=== PATIENT | female | born 1985 | race African-American/Black ===

== ENCOUNTER 2016-11-03 10:54 | Emergency (ER) | payer MEDICAID, OTHER ==
[~2016-11-03] VITALS: Ht 180.3 cm; Wt 100.0 kg
[~2016-11-03 10:54] MED LIST: BENZ1CAP34 PO; ZITH250T PO
[2016-11-03 10:56] VITALS: BP 151/100; PULSE 81; RESP 15; O2SAT 98
--- NOTE | 2016-11-03 11:05 | PD ---
HPI . right shoulder/arm pain for Chief Complaint: Musculoskeletal Complaint Time Seen by Provider: 11:05 Travel History International Travel<30 days: No Contact w/Intl Traveler<30days: No Traveled to known affect area: No History of Present Illness HPI 31-year-old female here with complaints of right clavicle and shoulder pain for the past few days. She does not recall any exact mechanism of injury, but is pointing to her AC joint as the location of most of her pain. She has difficulty moving her arm without pain. She rates the pain as 8/10. She has not tried any ibuprofen or Tylenol. She has no other complaints. [facility] Past Medical History Anemia: Yes ?: Not LMP: 10/26/2016 : 1 Para: 0 Miscarriage: 0 : 0 Past Surgical History Joint Replacement: Yes (RIGHT KNEE SURGERY DUE TO TORN LIGAMENTS) Social History Alcohol Use: No Tobacco Use: No Substance Use: No Allergies-Medications (Allergen,Severity, Reaction): Coded Allergies: No Known Allergies (Verified , 11/03/16) Reported Meds & Prescriptions Reported Meds & Active Scripts Active Ibuprofen 800 Mg Tab 800 Mg PO TID Flexeril (Cyclobenzaprine HCl) 5 Mg Tab 5 Mg PO TID Review of Systems General / Constitutional: No: Fever Eyes: No: Visual changes HENT: No: Headaches Cardiovascular: No: Chest Pain or Discomfort Respiratory: No: Shortness of Breath Gastrointestinal: No: Abdominal Pain Genitourinary: No: Dysuria Musculoskeletal: Positive: Pain (right shoulder/arm) Skin: No Rash Neurologic: No: Weakness Psychiatric: No: Depression Endocrine: No: Polydipsia Hematologic/Lymphatic: No: Easy Bruising Physical Exam Narrative GENERAL: AAO x 3, no acute distress, Well-nourished, well-developed patient. SKIN: Warm and dry. No visible rashes or bruising. HEAD: Normocephalic and atraumatic. EYES: No scleral icterus. No injection or drainage. ENT: No nasal drainage noted. . Airway patent. NECK: Supple, trachea midline. No JVD. CARDIOVASCULAR: Regular rate and rhythm without murmurs, gallops, or rubs. RESPIRATORY: Breath sounds equal bilaterally. No accessory muscle use. No rhonchi or rales. GASTROINTESTINAL: Visual inspection is normal EXTREMITIES: No cyanosis or edema. Bilateral upper extremities move without any difficulty. Patient is able to touch across each shoulder. She has full strength in upper and lower extremities. [employer] strength is normal bilaterally. She has tenderness along the AC joint without any obvious deformity. Right shoulder joint is freely mobile. tenderness to right shoulder muscles and partially trapezius BACK: Nontender without obvious deformity. No CVA tenderness. PSYCH: AAO x 3, normal affect. Data Data Last Documented VS Vital Signs Date Time Temp Pulse Resp B/P Pulse Ox O2 Delivery O2 Flow Rate FiO2 11/03/16 10:56 81 15 151/100 98 Orders Ibuprofen (Motrin) (11/03/16 11:15) Ac Joints,Bilat (W/Wo Weights) (11/03/16 11:13) [facility] Medical Decision Making Medical Screen Exam Complete: Yes Emergency Medical Condition: Yes Medical Record Reviewed: Yes Differential Diagnosis cervical muscle strain, pinched nerve, less likely AC joint separation, Narrative Course 31-year-old female here with complaints of right clavicle and shoulder pain for the past few days. She does not recall any exact mechanism of injury, but is pointing to her AC joint as the location of most of her pain. She has difficulty moving her arm without pain. She rates the pain as 8/10. She has not tried any ibuprofen or Tylenol. She has no other complaints. Patient seen and examined. I do not appreciate any abnormal findings on her physical exam, except for tenderness over the AC joint and trapezius (right). I will check an x-ray to rule out any type of joint separation. I highly doubt this will be positive. If it is normal send her home with some muscle relaxers for cervical muscle strain and possible pinched nerve. I have discussed my treatment plan with the patient and she is in agreement. Last Impressions Acromioclavicular Joints X-Ray 11/03/16 1113 Signed Impressions: Service Date/Time: October 11:33 - CONCLUSION: Unremarkable study. Michelle Clark MD Patient verbalized understanding of instructions, questions were answered, and thanked me for their care. I advised them if their condition worsens, please return to the nearest emergency room for further care. Diagnosis Primary Impression: Cervical muscle strain Qualified Code: S16.1XXA - Cervical muscle strain, initial encounter Additional Impression: Pinched nerve in shoulder Qualified Code: G56.81 - Pinched nerve in shoulder, right Patient Instructions: General Instructions Additional Instructions: Please return to emergency department if your symptoms return or worsen. Follow up with your primary care provider. Take medications as prescribed. If pain persists past 7-10 days, please follow-up with primary care provider. Med/Other Pt SpecificInfo: Prescription(s) given Scripts Ibuprofen 800 Mg Boc383 Mg PO TID #21 TAB Prov:Myrtle Kruse MD 11/03/16 Cyclobenzaprine (Flexeril)5 Mg Tab5 Mg PO TID #21 TAB Prov:Myrtle Kruse MD 11/03/16 Disposition: 01 DISCHARGE HOME Condition: Stable Yesy Falcno Nov 03, 2016 11:05
[2016-11-03] MEDS ORDERED: IBUPROFEN 800 MG TAB PO ONE (11:15)
--- NOTE | 2016-11-03 11:47 | RADRPT ---
EXAM DATE/TIME: 11/03/2016 11:33 [facility] COMPARISON: No previous studies available for comparison. INDICATIONS : Right radiating arm pain with no known injury. MEDICAL HISTORY : None. SURGICAL HISTORY : None. ENCOUNTER: Initial ACUITY: 1 week PAIN SCORE: 8/10 LOCATION: Right Shoulder FINDINGS: The coracoclavicular distance is normal. There is no widening of the acromioclavicular joints. No de finite fractures, dislocations, lytic, or sclerotic lesions are seen. CONCLUSION: Unremarkable study. Michelle Clark MD on November 03, 2016 at 11:44 Board Certified Radiologist. This report was verified electronically.
[2016-11-03] MEDS ORDERED: IBUP800T23 PO ×2 (11:55→12:31)
[2016-11-03] MEDS ORDERED: CYCL5TAB PO ×2 (11:55→12:31)
== END 2016-11-03 12:54 | disposition home or self-care (01) ==
LOC: NEPK 10:54
DX: S16.1XXA Strain of muscle, fascia and tendon at neck level, initial encounter (principal); G56.81 Other specified mononeuropathies of right upper limb; D64.9 Anemia, unspecified; X58.XXXA Exposure to other specified factors, initial encounter
CPT/HCPCS: 73050; 99283

== ENCOUNTER 2016-12-18 12:02 | Emergency (ER) | payer MEDICAID, OTHER ==
[~2016-12-18 12:02] MED LIST changes: -BENZ1CAP34 PO; +CYCL5TAB PO; +IBUP800T23 PO; -ZITH250T PO
[2016-12-18 12:03] VITALS: BP 134/79; PULSE 106; RESP 20; TEMP 98.5; O2SAT 100
--- NOTE | 2016-12-18 12:28 | PD ---
Physical Exam Date Seen by Provider: Dec 18, 2016 Time Seen by Provider: 12:25 Narrative 31 y/o female presents with generalized lower abdominal pain and cramping. Denies as she has had tubes tied. Fever last night. + nausea. No vomiting. No diarrhea or Constipation. Denies vaginal symptoms or dysuria. Pain 10/10. No flank pain. Patients VS stable. Awaiting Bed Placement. Data Data Last Documented VS Vital Signs Date Time Temp Pulse Resp B/P Pulse Ox O2 Delivery O2 Flow Rate FiO2 12/18/16 12:03 98.5 106 20 134/79 100 Room Air Orders Urinalysis - C+S If Indicated (12/18/16 12:28) Ed Urine Pregnancytest Poc (12/18/16 12:28) Labs Laboratory Tests Test 12/18/16 12:35 Urine Color DARK-BROWN Urine Turbidity CLOUDY Urine pH 6.0 Urine Specific [place] 1.030 Urine Protein 100 mg/dL Urine Glucose (UA) TRACE mg/dL Urine Ketones 10 mg/dL Urine Occult Blood LARGE Urine Nitrite NEG Urine Bilirubin NEG Urine Urobilinogen 2.0 MG/DL Urine Leukocyte Esterase SMALL Urine RBC 20-24 /hpf Urine WBC 3-5 /hpf Urine Squamous Epithelial 6-8 /hpf Cells Urine Yeast (Budding) RARE Microscopic Urinalysis Comment CULT NOT INDICATED MDM Medical Record Reviewed: Yes Supervised Visit with SHILOH: Yes Disposition: 07 AGAINST MEDICAL ADVICE Condition: Stable Yosvany Matais Dec 18, 2016 12:28
[2016-12-18 12:49] LABS: BLOOD, URINE LARGE (NEG); GLUCOSE,URINE TRACE mg/dL (NEG); KETONE, URINE 10 mg/dL (NEG); NITRITE,URINE NEG (NEG)
[2016-12-18 12:51] LABS: URINE COLOR DARK-BROWN (YELLW/STRAW)
[2016-12-18 13:17] LABS: COMMENT (UR) CULT NOT INDICATED; COMMENT2 (UR) CULT NOT INDICATED; CULTURE IF INDICATED CULT NOT INDICATED
== END 2016-12-18 13:35 | disposition left against medical advice (07) ==
LOC: NED 12:02
DX: R10.30 Lower abdominal pain, unspecified (principal); Z53.21 Procedure and treatment not carried out due to patient leaving prior to being seen by health care provider
CPT/HCPCS: 81001; 84703; 99281; 99283

== ENCOUNTER 2017-05-06 14:01 | Emergency (ER) | payer MEDICAID ==
[2017-05-06 14:02] VITALS: BP 113/61; PULSE 89; RESP 14; TEMP 98.7; O2SAT 98
[2017-05-06 14:31] LABS: BLOOD, URINE NEG (NEG); GLUCOSE,URINE NEG (NEG); KETONE, URINE NEG (NEG); MUCUS URINE FEW /lpf (OCC); NITRITE,URINE POS (NEG); SQUAMOUS EPITHELIAL CELL URINE 11 /hpf (0-5); URINE LEUKOCYTE ESTERASE MOD (NEG)
[2017-05-06 14:36] LABS: BACTERIA, URINE FEW /hpf; BILIRUBIN, URINE NEG (NEG); URINE COLOR ORANGE (YELLW/STRAW)
[2017-05-06] MEDS ORDERED: FERR325C PO (14:54)
[2017-05-06] MEDS ORDERED: SODIUM CHLOR 0.9% 1000 ML INJ 1,000 ML IV SCH (14:54)
[2017-05-06] MEDS ORDERED: ONDANSETRON HCL 4 MG/2 ML VIAL IVP ONE (15:00)
[2017-05-06] MEDS ORDERED: MORPHINE SULFATE 4 MG/ML INJ IV PUSH ONE (15:00)
[2017-05-06] MEDS ORDERED: SODIUM CHLORIDE 0.9% FLUSH 10 ML FLUSH IV FLUSH PRN (15:00)
--- NOTE | 2017-05-06 15:04 | PD ---
HPI Chief Complaint: Abdominal Pain Time Seen by Provider: 14:46 Travel History International Travel<30 days: No Contact w/Intl Traveler<30days: No Traveled to known affect area: No History of Present Illness HPI Patient is a 31-year-old female who presents to emergency room with complaints of abdominal pain. Patient reports that she's had a umbilical to right lower quadrant abdominal pain which has been constant for the past week. Patient reports that initially symptoms were mild in nature, reports that symptoms have been progressing over the past few days. Patient denies any fevers or chills, she denies any nausea or vomiting. Patient reports that she did have a normal bowel movement today. Patient endorses that she is having some dysuria as well as urinary frequency. Denies vaginal discharge or bleeding. Denies history of ovarian cyst in the past. Reports no abdominal surgeries in the past. PFSH Past Medical History Anemia: Yes Tetanus Vaccination: < 5 Years Influenza Vaccination: No ?: Not : 1 Para: 0 Miscarriage: 0 : 0 Past Surgical History Joint Replacement: Yes (RIGHT KNEE SURGERY DUE TO TORN LIGAMENTS) Other Surgery: Yes (pylonidal cyst removed) Social History Alcohol Use: Yes (social) Tobacco Use: No Substance Use: No Allergies-Medications (Allergen,Severity, Reaction): Coded Allergies: No Known Allergies (Verified , 05/06/17) Reported Meds & Prescriptions Reported Meds & Active Scripts Active Reported Iron (Ferrous Sulfate) 325 Mg Cap 325 Mg PO DAILY Review of Systems General / Constitutional: No: Fever Eyes: No: Visual changes HENT: No: Headaches Cardiovascular: No: Chest Pain or Discomfort Respiratory: No: Shortness of Breath Gastrointestinal: Positive: Abdominal Pain, No: Nausea, Vomiting, Diarrhea, Constipation Genitourinary: No: Urgency, Frequency, Dysuria, Nocturia, Pelvic Pain, Flank Pain, Discharge Musculoskeletal: No: Pain Skin: No Rash Neurologic: No: Weakness Psychiatric: No: Depression Endocrine: No: Polydipsia Hematologic/Lymphatic: No: Easy Bruising Physical Exam Narrative GENERAL: Mild distress SKIN: Focused skin assessment warm/dry. HEAD: Atraumatic. Normocephalic. EYES: Pupils equal and round. No scleral icterus. No injection or drainage. ENT: No nasal bleeding or discharge. Mucous membranes pink and moist. NECK: Trachea midline. No JVD. CARDIOVASCULAR: Regular rate and rhythm. No murmur appreciated. RESPIRATORY: No accessory muscle use. Clear to auscultation. Breath sounds equal bilaterally. GASTROINTESTINAL: Abdomen soft, increased tenderness to periumbililcus to RLQ, no rebound or guarding on exam. nondistended. Hepatic and splenic margins not palpable. MUSCULOSKELETAL: No obvious deformities. No clubbing. No cyanosis. No edema. NEUROLOGICAL: Awake and alert. No obvious cranial nerve deficits. Motor grossly within normal limits. Normal speech. PSYCHIATRIC: Appropriate mood and affect; insight and judgment normal. Data Data Last Documented VS Vital Signs Date Time Temp Pulse Resp B/P (MAP) Pulse Ox O2 Delivery O2 Flow Rate FiO2 05/06/17 15:05 69 14 114/70 (85) 100 05/06/17 14:02 98.7 Orders Orders Urinalysis - C+S If Indicated (05/06/17 14:11) Ed Urine Pregnancytest Poc (05/06/17 14:11) Urine Culture (05/06/17 14:20) Beta Hcg (Quant/Titer) (05/06/17 14:54) Complete Blood Count With Diff (05/06/17 14:54) Comprehensive Metabolic Panel (05/06/17 14:54) Lipase (05/06/17 14:54) Prothrombin Time / Inr (Pt) (05/06/17 14:54) Act Partial Throm Time (Ptt) (05/06/17 14:54) Ct Abd/Pel W Iv Contrast(Rout) (05/06/17 14:54) Iv Access Insert/Monitor (05/06/17 14:54) Ecg Monitoring (05/06/17 14:54) Oximetry (05/06/17 14:54) Morphine Inj (Morphine Inj) (05/06/17 15:00) Ondansetron Inj (Zofran Inj) (05/06/17 15:00) Sodium Chlor 0.9% 1000 Ml Inj (Ns 1000 M (05/06/17 14:54) Sodium Chloride 0.9% Flush (Ns Flush) (05/06/17 15:00) Ceftriaxone Inj (Rocephin Inj) (05/06/17 15:15) Iohexol 350 Inj (Omnipaque 350 Inj) (05/06/17 15:52) Labs Laboratory Tests Test 05/06/17 14:20 05/06/17 14:50 Urine Color ORANGE Urine Turbidity HAZY Urine pH 6.0 Urine Specific [place] 1.020 Urine Protein TRACE mg/dL Urine Glucose (UA) NEG mg/dL Urine Ketones NEG mg/dL Urine Occult Blood NEG Urine Nitrite POS Urine Bilirubin NEG Urine Urobilinogen 2.0 MG/DL Urine Leukocyte Esterase MOD Urine RBC 2 /hpf Urine WBC 3 /hpf Urine Squamous Epithelial Cells 11 /hpf Urine Bacteria FEW /hpf Urine Mucus FEW /lpf Microscopic Urinalysis Comment CULTURE INDICATED White Blood Count 3.1 TH/MM3 Red Blood Count 4.10 MIL/MM3 Hemoglobin 8.9 GM/DL Hematocrit 29.1 % Mean Corpuscular Volume 70.9 FL Mean Corpuscular Hemoglobin 21.8 PG Mean Corpuscular Hemoglobin Concent 30.8 % Red Cell Distribution Width 20.5 % Platelet Count 302 TH/MM3 Mean Platelet Volume 9.8 FL Neutrophils (%) (Auto) 39.2 % Lymphocytes (%) (Auto) 46.2 % Monocytes (%) (Auto) 9.8 % Eosinophils (%) (Auto) 3.4 % Basophils (%) (Auto) 1.4 % Neutrophils # (Auto) 1.2 TH/MM3 Lymphocytes # (Auto) 1.4 TH/MM3 Monocytes # (Auto) 0.3 TH/MM3 Eosinophils # (Auto) 0.1 TH/MM3 Basophils # (Auto) 0.0 TH/MM3 CBC Comment DIFF FINAL Differential Comment Prothrombin Time 11.2 SEC Prothromb Time International Ratio 1.0 RATIO Activated Partial Thromboplast Time 24.0 SEC Blood Urea Nitrogen 6 MG/DL Creatinine 0.76 MG/DL Random Glucose 76 MG/DL Total Protein 7.6 GM/DL Albumin 3.7 GM/DL Calcium Level 8.4 MG/DL Alkaline Phosphatase 66 U/L Aspartate Amino Transf (AST/SGOT) 9 U/L Alanine Aminotransferase (ALT/SGPT) 14 U/L Total Bilirubin 0.9 MG/DL Sodium Level 137 MEQ/L Potassium Level 3.9 MEQ/L Chloride Level 107 MEQ/L Carbon Dioxide Level 27.1 MEQ/L Anion Gap 3 MEQ/L Estimat Glomerular Filtration Rate 109 ML/MIN Lipase 110 U/L Human Chorionic Gonadotropin, Quant LESS THAN 1 MIU/ML MDM Medical Decision Making Medical Screen Exam Complete: Yes Emergency Medical Condition: Yes Medical Record Reviewed: Yes Interpretation(s) Vital Signs Date Time Temp Pulse Resp B/P (MAP) Pulse Ox O2 Delivery O2 Flow Rate FiO2 05/06/17 14:02 98.7 89 14 113/61 (56) 98 Differential Diagnosis Differential includes cystitis, appendicitis, ovarian torsion, ovarian cysts, gastroenteritis Narrative Course Patient is a 31-year-old female presents to emergency room complaints of right lower quadrant abdominal pain. Patient reports that symptoms and ongoing for the past week, reports the symptoms have been progressing. She does endorse that she has experiencing dysuria, as well as urinary urgency or frequency. UA was ordered. An IV line was established, CBC, CMP, CT of the abdomen pelvis with IV contrast was ordered. Plan to establish an IV and administer IV fluids as well as pain medications and antiemetics. Plan to monitor patient. Laboratory Tests Test 05/06/17 14:20 Urine Color ORANGE (YELLW/STRAW) Urine Turbidity HAZY (CLEAR) Urine pH 6.0 (5.0-8.5) Urine Specific [place] 1.020 (1.002-1.035) Urine Protein TRACE mg/dL (NEG-TRACE) Urine Glucose (UA) NEG mg/dL (NEG) Urine Ketones NEG mg/dL (NEG) Urine Occult Blood NEG (NEG) Urine Nitrite POS (NEG) Urine Bilirubin NEG (NEG) Urine Urobilinogen 2.0 MG/DL (LESS THAN Urine Leukocyte Esterase MOD (NEG) Urine RBC 2 /hpf (0-3) Urine WBC 3 /hpf (0-5) Urine Squamous Epithelial Cells 11 /hpf (0-5) Urine Bacteria FEW /hpf (NONE) Urine Mucus FEW /lpf (OCC) Microscopic Urinalysis Comment CULTURE INDICATED Patient with a few bacteria her urine, moderate leuk esterase, 3 white blood cells, urine culture sent. We'll give a dose of IV Rocephin at this time. Last Impressions Abdomen/Pelvis CT 05/06/17 2193 Signed Impressions: Service Date/Time: Saturday, May 06, 2017 15:48 - CONCLUSION: 1. Bilateral adnexal cystic lesions presumably ovarian in origin. The left measures 3.4 cm and the right 2.4 cm. No free fluid. Terrell Sharp Jr., MD Patient reevaluated, patient feeling much better at this time. Abdomen is soft , nontender, nondistended, no peritoneal signs. CT the abdomen pelvis shows bilateral adnexal cysts measuring 3.4 cm and 2.4 cm in size. Patient also with a UTI at this time. Patient was given IV Rocephin, plan to treat with Macrobid. Patient will follow-up with your urine cultures from today. She will follow up with her primary care doctor as well as supervisor carton and can supply. A copy of patient's labwork and studies were given to her discharge. I also discussed patient's anemia which patient reports is at baseline. Patient will return to emergency room if symptoms worsen or progress, she will return to the emergency room as needed. Diagnosis Primary Impression: Abdominal pain Qualified Codes: R10.30 - Lower abdominal pain, unspecified Additional Impressions: UTI (urinary tract infection) Qualified Codes: N30.01 - Acute cystitis with hematuria Anemia Qualified Codes: D64.9 - Anemia, unspecified Ovarian cyst Qualified Codes: N83.201 - Unspecified ovarian cyst, right side; N83.202 - Unspecified ovarian cyst, left side Referrals: [facility] Patient Instructions: General Instructions Additional Instructions: Please provide patient with a copy of her labs and studies at discharge Please take all antibiotics as prescribed Please follow-up with all cultures from today Please return to the emergency room as needed Please return to emergency room if symptoms worsen or progress Please up with your supervisor carton and can supply as soon as possible Med/Other Pt SpecificInfo: Prescription(s) given Scripts Ibuprofen (Ibuprofen) 600 Mg Tab 600 MG PO Q6H Y for Pain/Inflammation, #40 TAB 0 Refills Prov: Janice Guthrie DO 05/06/17 Nitrofurantoin Monohydrate Macrocrystals (Macrobid) 100 Mg Cap 100 MG PO BID for Infection for 10 Days, #20 CAP 0 Refills Prov: Janice Guthrie DO 05/06/17 Disposition: 01 DISCHARGE HOME Condition: Stable Janice Guthrie DO May 06, 2017 15:04
[2017-05-06 15:05] VITALS: BP 114/70; PULSE 69; RESP 14; O2SAT 100
[2017-05-06] MEDS ORDERED: cefTRIAXone INJ 1,000 MG in SODIUM CHLORIDE 0.9% INJ 100 ML IV ONE (15:15)
[2017-05-06 15:16] LABS: AUTOMATED NEUTROPHIL # 1.2 TH/MM3 (1.8-7.7); BASOPHIL % 1.4 % (0.0-2.0); EOSINOPHIL # 0.1 TH/MM3 (0-0.4); EOSINOPHIL % 3.4 % (0.0-4.0); HEMATOCRIT 29.1 % (35.0-46.0); HEMOGLOBIN 8.9 GM/DL (11.6-15.3); LYMPH % 46.2 % (9.0-44.0); LYMPHOCYTE # 1.4 TH/MM3 (1.0-4.8); MEAN CELL VOLUME 70.9 FL (80.0-100.0); MEAN CORPUSCULAR HEMOGLOBIN 21.8 PG (27.0-34.0); MEAN CORPUSCULAR HGB CONC 30.8 % (32.0-36.0); MEAN PLATELET VOLUME 9.8 FL (7.0-11.0); MONO % 9.8 % (0.0-8.0); MONOCYTE # 0.3 TH/MM3 (0-0.9); NEUT % 39.2 % (16.0-70.0); PLATELET COUNT 302 TH/MM3 (150-450); RED CELL DISTRIBUTION WIDTH 20.5 % (11.6-17.2); WHITE BLOOD COUNT 3.1 TH/MM3 (4.0-11.0)
[2017-05-06 15:31] LABS: ALBUMIN 3.7 GM/DL (3.4-5.0); ALT (GPT) 14 U/L (10-53); AST (GOT) 9 U/L (15-37); BICARBONATE 27.1 MEQ/L (21.0-32.0); BLOOD UREA NITROGEN 6 MG/DL (7-18); CALCIUM 8.4 MG/DL (8.5-10.1); CHLORIDE 107 MEQ/L (98-107); CREATININE 0.76 MG/DL (0.50-1.00); GLOMERULAR FILTRATION RATE 109 ML/MIN (>89); GLUCOSE,RANDOM 76 MG/DL (74-106); LIPASE 110 U/L (73-393); SODIUM (NA) 137 MEQ/L (136-145)
[2017-05-06 15:34] LABS: ALKALINE PHOSPHATASE 66 U/L (45-117); TOTAL BILIRUBIN ADULT 0.9 MG/DL (0.2-1.0); TOTAL PROTEIN 7.6 GM/DL (6.4-8.2)
[2017-05-06 15:43] LABS: PROTHROMBIN TIME - PATIENT 11.2 SEC (9.8-11.6)
[2017-05-06] MEDS ORDERED: IOHEXOL 350 MG/ML 10 ML VIAL (for RAD DIAG) IVCONTRAST ONE (15:52)
--- NOTE | 2017-05-06 16:14 | RADRPT ---
EXAM DATE/TIME: 05/06/2017 15:48 [facility] COMPARISON: No previous studies available for comparison. INDICATIONS : Right lower quadrant pain. IV CONTRAST: 100 cc Omnipaque 350 (iohexol) IV ORAL CONTRAST: No oral contrast ingested. RADIATION DOSE: 5.1 CTDIvol (mGy) MEDICAL HISTORY : None SURGICAL HISTORY : None. ENCOUNTER: Initial ACUITY: 1 day PAIN SCALE: 4/10 LOCATION: Right lower quadrant TECHNIQUE: Volumetric scanning of the abdomen and pelvis was performed. Using automated exposure control and ad justment of the mA and/or kV according to patient size, radiation dose was kept as low as reasonably achievable to obtain optimal diagnostic quality images. DICOM format image data is available electro nically for review and comparison. FINDINGS: LOWER LUNGS: The visualized lower lungs are clear. LIVER: Homogeneous density without lesion. There is no dilation of the biliary tree. No calcified gallston es. SPLEEN: Normal size without lesion. PANCREAS: Within normal limits. KIDNEYS: Normal in size and shape. There is no mass, stone or hydronephrosis. ADRENAL GLANDS: Within normal limits. VASCULAR: There is no aortic aneurysm. BOWEL/MESENTERY: The stomach, small bowel, and colon demonstrate no acute abnormality. There is no free intraperitone al air or fluid. ABDOMINAL WALL: Within normal limits. RETROPERITONEUM: There is no lymphadenopathy. BLADDER: No wall thickening or mass. REPRODUCTIVE: Bilateral adnexal cystic lesions are seen presumably ovarian in origin. On the left this measures 3.4 cm in diameter with Hounsfield units 22. Within the cul-de-sac and just to the right of midline the lesion measures 2.4 cm with Hounsfield units 7. The uterus is anteverted and slightly to the right. INGUINAL: There is no lymphadenopathy or hernia. MUSCULOSKELETAL: Within normal limits for patient age. CONCLUSION: 1. Bilateral adnexal cystic lesions presumably ovarian in origin. The left measures 3.4 cm and the ri ght 2.4 cm. No free fluid. Terrell Sharp Jr., MD on May 06, 2017 at 16:09 Board Certified Radiologist. This report was verified electronically.
[2017-05-06] MEDS ORDERED: KETOROLAC TROMETHAMINE 30 MG/ML (IVP) VIAL IV PUSH ONE (16:30)
[2017-05-06 16:31] VITALS: BP 114/67; PULSE 64; RESP 16; O2SAT 100
[2017-05-06] MEDS ORDERED: MACR100C2 PO (16:32)
[2017-05-06] MEDS ORDERED: IBUP-232 PO (16:32)
== END 2017-05-06 17:07 | disposition home or self-care (01) ==
LOC: NEPD 14:01
DX: R10.30 Lower abdominal pain, unspecified (principal); N30.01 Acute cystitis with hematuria; D64.9 Anemia, unspecified; N83.201 Unspecified ovarian cyst, right side; N83.202 Unspecified ovarian cyst, left side; Z86.2 Personal history of diseases of the blood and blood-forming organs and certain disorders involving the immune mechanism
CPT/HCPCS: 74177; 80053; 81001; 83690; 84702; 84703; 85025; 85610; 85730; 87086; 96361; 96365; 96375; 99285; J0696; J1885; J2270; J2405; J7030; Q9967

== ENCOUNTER 2017-08-21 18:17 | Emergency (ER) | payer MEDICAID, OTHER ==
[~2017-08-21 18:17] MED LIST changes: -CYCL5TAB PO; +FERR325C PO; +IBUP-232 PO; -IBUP800T23 PO; +MACR100C2 PO
[2017-08-21 18:19] VITALS: BP 133/73; PULSE 113; RESP 16; TEMP 103.1; O2SAT 100
[2017-08-21] MEDS ORDERED: ACETAMINOPHEN 325 MG TAB PO ONE (19:00)
[2017-08-21 19:24] LABS: BILIRUBIN, URINE NEG (NEG); BLOOD, URINE SMALL (NEG); GLUCOSE,URINE NEG (NEG); KETONE, URINE NEG (NEG); MUCUS URINE FEW /lpf (OCC); NITRITE,URINE NEG (NEG); PH, URINE 5.5 (5.0-8.5); SQUAMOUS EPITHELIAL CELL URINE 8 /hpf (0-5); URINE COLOR YELLOW (YELLW/STRAW); URINE LEUKOCYTE ESTERASE SMALL (NEG)
[2017-08-21 19:58] LABS: AUTOMATED NEUTROPHIL # 7.9 TH/MM3 (1.8-7.7); BASOPHIL % 0.3 % (0.0-2.0); HEMATOCRIT 29.2 % (35.0-46.0); HEMOGLOBIN 9.4 GM/DL (11.6-15.3); LYMPH % 5.3 % (9.0-44.0); LYMPHOCYTE # 0.5 TH/MM3 (1.0-4.8); MEAN CELL VOLUME 72.2 FL (80.0-100.0); MEAN CORPUSCULAR HEMOGLOBIN 23.4 PG (27.0-34.0); MEAN CORPUSCULAR HGB CONC 32.3 % (32.0-36.0); MEAN PLATELET VOLUME 9.4 FL (7.0-11.0); MONO % 4.8 % (0.0-8.0); MONOCYTE # 0.4 TH/MM3 (0-0.9); NEUT % 89.6 % (16.0-70.0); PLATELET COUNT 397 TH/MM3 (150-450); RED BLOOD COUNT 4.04 MIL/MM3 (4.00-5.30); RED CELL DISTRIBUTION WIDTH 18.6 % (11.6-17.2); WHITE BLOOD COUNT 8.8 TH/MM3 (4.0-11.0)
[2017-08-21 20:03] LABS: BICARBONATE 27.2 MEQ/L (21.0-32.0); CALCIUM 8.3 MG/DL (8.5-10.1); CREATININE 0.94 MG/DL (0.50-1.00)
[2017-08-21 21:01] VITALS: BP 126/68; PULSE 98; RESP 16; TEMP 99.4; O2SAT 99
--- NOTE | 2017-08-21 21:28 | PD ---
HPI Chief Complaint: Cold / Flu Symptoms Time Seen by Provider: 21:20 Travel History International Travel<30 days: No Contact w/Intl Traveler<30days: No Traveled to known affect area: No History of Present Illness HPI The patient was seen and examined in the presence of the nurse. This patient complains of nausea and vomiting and diarrhea and fever. Duration is 12 hours. Her son had the same symptoms but just got over it and now she developed the symptoms. She is not having abdominal pain or any respiratory complaint. Symptoms severity is moderate. No alleviating factors. No exacerbating factors. PFSH Past Medical History Anemia: Yes Diminished Hearing: No Immunizations Current: Yes Tetanus Vaccination: < 5 Years Influenza Vaccination: No ?: Not LMP: 08/13/17 : 1 Para: 0 Miscarriage: 0 : 0 Past Surgical History Joint Replacement: Yes (RIGHT KNEE SURGERY DUE TO TORN LIGAMENTS) Other Surgery: Yes (pylonidal cyst removed) Social History Alcohol Use: Yes (social) Tobacco Use: No Substance Use: No Allergies-Medications (Allergen,Severity, Reaction): Coded Allergies: No Known Allergies (Verified , 05/06/17) Reported Meds & Prescriptions Reported Meds & Active Scripts Active Zofran (Ondansetron HCl) 4 Mg Tab 4 Mg PO Q6HR PRN Review of Systems General / Constitutional: Positive: Fever Eyes: No: Visual changes HENT: No: Headaches Cardiovascular: No: Chest Pain or Discomfort Respiratory: No: Shortness of Breath Gastrointestinal: Positive: Nausea, Vomiting, Diarrhea, No: Abdominal Pain Genitourinary: No: Dysuria Musculoskeletal: No: Pain Skin: No Rash Neurologic: No: Weakness Psychiatric: No: Depression Endocrine: No: Polydipsia Hematologic/Lymphatic: No: Easy Bruising Physical Exam Narrative GENERAL: Well-nourished, well-developed patient in no apparent distress. SKIN: Focused skin assessment reveals no rash and nodules. Skin is Warm and dry. HEAD: Atraumatic. Normocephalic. EYES: Pupils equal and round. No scleral icterus. No injection or drainage. ENT: No nasal bleeding or discharge. Mucous membranes pink and moist. NECK: Trachea midline. No JVD. No meningeal signs CARDIOVASCULAR: Regular rate and rhythm. No murmur appreciated. RESPIRATORY: No accessory muscle use. Clear to auscultation. Breath sounds equal bilaterally. GASTROINTESTINAL: Abdomen soft, non-tender, nondistended. Hepatic and splenic margins not palpable. MUSCULOSKELETAL: No obvious deformities. No clubbing. No cyanosis. No edema. NEUROLOGICAL: Awake and alert. No obvious cranial nerve deficits. Motor grossly within normal limits. Normal speech. PSYCHIATRIC: Appropriate mood and affect; insight and judgment normal. Data Data Last Documented VS Vital Signs Date Time Temp Pulse Resp B/P (MAP) Pulse Ox O2 Delivery O2 Flow Rate FiO2 08/21/17 21:01 99.4 98 16 126/68 (87) 99 Orders Orders Acetaminophen (Tylenol) (08/21/17 19:00) Influenzae A/B Antigen (08/21/17 18:54) Complete Blood Count With Diff (08/21/17 18:54) Basic Metabolic Panel (Bmp) (08/21/17 18:54) Urinalysis - C+S If Indicated (08/21/17 18:55) Ed Urine Pregnancytest Poc (08/21/17 18:55) Ondansetron Inj (Zofran Inj) (08/21/17 21:30) Sodium Chlor 0.9% 1000 Ml Inj (Ns 1000 M (08/21/17 21:30) Potassium Bicarb Eff (Effer-K Eff) (08/21/17 21:30) Potassium Chloride (Kcl) (08/21/17 22:15) Labs Laboratory Tests Test 08/21/17 19:10 08/21/17 19:15 Urine Color YELLOW Urine Turbidity HAZY Urine pH 5.5 Urine Specific [place] 1.028 Urine Protein 30 mg/dL Urine Glucose (UA) NEG mg/dL Urine Ketones NEG mg/dL Urine Occult Blood SMALL Urine Nitrite NEG Urine Bilirubin NEG Urine Urobilinogen LESS THAN 2.0 MG/DL Urine Leukocyte Esterase SMALL Urine RBC 2 /hpf Urine WBC 3 /hpf Urine Squamous Epithelial Cells 8 /hpf Urine Mucus FEW /lpf Microscopic Urinalysis Comment CULT NOT INDICATED White Blood Count 8.8 TH/MM3 Red Blood Count 4.04 MIL/MM3 Hemoglobin 9.4 GM/DL Hematocrit 29.2 % Mean Corpuscular Volume 72.2 FL Mean Corpuscular Hemoglobin 23.4 PG Mean Corpuscular Hemoglobin Concent 32.3 % Red Cell Distribution Width 18.6 % Platelet Count 397 TH/MM3 Mean Platelet Volume 9.4 FL Neutrophils (%) (Auto) 89.6 % Lymphocytes (%) (Auto) 5.3 % Monocytes (%) (Auto) 4.8 % Eosinophils (%) (Auto) 0.0 % Basophils (%) (Auto) 0.3 % Neutrophils # (Auto) 7.9 TH/MM3 Lymphocytes # (Auto) 0.5 TH/MM3 Monocytes # (Auto) 0.4 TH/MM3 Eosinophils # (Auto) 0.0 TH/MM3 Basophils # (Auto) 0.0 TH/MM3 CBC Comment DIFF FINAL Differential Comment Blood Urea Nitrogen 6 MG/DL Creatinine 0.94 MG/DL Random Glucose 104 MG/DL Calcium Level 8.3 MG/DL Sodium Level 135 MEQ/L Potassium Level 2.9 MEQ/L Chloride Level 102 MEQ/L Carbon Dioxide Level 27.2 MEQ/L Anion Gap 6 MEQ/L Estimat Glomerular Filtration Rate 85 ML/MIN MDM Medical Decision Making Medical Screen Exam Complete: Yes Emergency Medical Condition: Yes Medical Record Reviewed: Yes Differential Diagnosis Gastritis, colitis, food poisoning Narrative Course I have reviewed the patient's electronic medical record. Patient arrives with a temperature 103 She received Tylenol and her current temperature is 99 CBC and metabolic profiles are normal except for hypokalemia of 2.9 IV placed I'm giving her 1 L normal saline IV bolus and IV Zofran I am then going to try some oral potassium replacement 2246: Patient drinking Gatorade and feeling improved, stable for discharge Diagnosis Primary Impression: Nausea vomiting and diarrhea Additional Impression: Hypokalemia Additional Instructions: The patient was advised to follow up with their physician and return if they worsen. Med/Other Pt SpecificInfo: Prescription(s) given Scripts Ondansetron (Zofran) 4 Mg Tab 4 MG PO Q6HR Y for NAUSEA OR VOMITING, #12 TAB 0 Refills Prov: Brandin Mckee MD 08/21/17 Disposition: 01 DISCHARGE HOME Condition: Stable Brandin Mckee MD Aug 21, 2017 21:28
[2017-08-21] MEDS ORDERED: ONDANSETRON HCL 4 MG/2 ML VIAL IV ONE (21:30)
[2017-08-21] MEDS ORDERED: SODIUM CHLOR 0.9% 1000 ML INJ 1,000 ML IV ONE (21:30)
[2017-08-21] MEDS ORDERED: POTASSIUM BICARBONATE 25 MEQ EFFERVESCENT TAB PO ONE (21:30)
[2017-08-21] MEDS ORDERED: POTASSIUM CHLORIDE 20 MEQ CONTROLLED RELEASE TAB PO ONE (22:15)
[2017-08-21] MEDS ORDERED: ZOFR4TAB PO (22:46)
[2017-08-21] MEDS ORDERED: POTA1TAB4 PO (22:49)
[2017-08-21 23:30] VITALS: BP 104/62; TEMP 98.9
== END 2017-08-21 23:38 | disposition home or self-care (01) ==
LOC: NEPD 18:17
DX: R11.2 Nausea with vomiting, unspecified (principal); R19.7 Diarrhea, unspecified; E87.6 Hypokalemia
CPT/HCPCS: 80048; 81001; 84703; 85025; 87804; 96361; 96374; 99284; J2405; J7030